=== PATIENT | female | born 1950 | race Caucasian/White ===

== ENCOUNTER 2022-05-01 13:28 | Inpatient (IN) | payer OTHER ==
[~2022-05-01] VITALS: Ht 172.7 cm; Wt 61.7 kg
[2022-05-01 13:35] VITALS: BP_SYST 204
--- NOTE | 2022-05-01 13:45 | NUR ---
PT PLACED IN BED AT THIS TIME FROM [facility] FROM HD FOR TONIC CLONIC SEIZURES FOR 20 SECONDS WHILE 3 HOURS INTO.
--- NOTE | 2022-05-01 14:37 | NUR ---
PT OFF TO CT AT THIS TIME
[2022-05-01 15:19] LABS: BASOPHILS # (AUTO) 0.1 K/uL (0.0-0.2); BASOPHILS % (AUTO) 1.2 % (0.0-2.0); EOSINOPHILS # (AUTO) 0.2 K/uL (0.0-0.4); EOSINOPHILS % (AUTO) 5.1 % (0.0-4.0); HEMATOCRIT 32.7 % (36-48); HEMOGLOBIN 11.2 g/dL (12.0-16.0); LYMPHOCYTES # (AUTO) 0.8 K/uL (1.0-5.5); LYMPHOCYTES % (AUTO) 17.6 % (20.5-51.5); MEAN CORPUSCULAR HEMOGLOBIN 33 pg (27-31); MEAN CORPUSCULAR HGB CONC 34 % (32-36); MEAN CORPUSCULAR VOLUME 96 fL (79.0-98.0); MONOCYTES # (AUTO) 0.3 K/uL (0.0-1.0); MONOCYTES % (AUTO) 5.7 % (1.7-9.3); NEUTROPHILS # (AUTO) 3.1 K/uL (1.8-7.7); NEUTROPHILS % (AUTO) 70.4 % (40.0-70.0); PLATELET COUNT (AUTO) 133 K/uL (130-430); RED CELL DISTRIBUTION WIDTH 14.6 % (9.0-15.0); WHITE BLOOD COUNT (AUTO) 4.4 K/uL (4.8-10.8)
[2022-05-01 15:24] LABS: ANION GAP 9 (5-15); CALCIUM 8.2 mg/dL (8.4-11.0); CHLORIDE 94 mmol/L (98-107); CREATININE 4.91 mg/dL (0.55-1.30); GLUCOSE 116 mg/dL (70-99); POTASSIUM 3.7 mmol/L (3.5-5.1); SODIUM SERUM 135 mmol/L (136-145); UREA NITROGEN, BLOOD 59 mg/dL (8-21)
[2022-05-01 15:37] LABS: ALANINE AMINOTRANSFERASE 59 U/L (12-78); ALBUMIN 3.4 g/dL (3.4-4.8); ASPARTATE AMINOTRANSFERASE 40 U/L (10-37); PHOSPHORUS 2.5 mg/dL (2.7-4.5); TOTAL BILIRUBIN 0.4 mg/dL (0.0-1.0)
[2022-05-01 15:40] LABS: GFR AFRICAN AMERICAN 11 mL/min (>90)
--- NOTE | 2022-05-01 15:45 | NUR ---
SHARA MEREDITH(CLEOPATRA)
--- NOTE | 2022-05-01 15:47 | NUR ---
SPOKE TO DAUGHTER, HAMLET, AT BEDSIDE. REPORTS PATIENT HAD A 20-30 SEC WITNESSED TONIC CLONIC SEIZURE WHILE AT DIALYSIS AFTER 3 HOURS TODAY. PATIENT HAS DIALYSIS ON SUNDAY, SUNDAY, AND SUNDAY AND IS CARED FOR BY DR. REES. PER DAUGHTER, THIS IS THE FIRST TIME PATIENT HAD SEIZURE. DAUGHTER REPORTS PATIENT HAS BEEN HAVING FACIAL AND LEFT SHOULDER TWITCHING. DAUGHTER BROUGHT PATIENT TO [facility] AND REPORTS "THEY FOUND NOTHING WRONG." PATIENT HAS LEFT FA FISTULA . PATIENT IS LETHARGIC. DAUGHTER REPORTS THIS IS HER BASELINE ON DIALYSIS DAYS. BP IS 208/92. DR. KING IS AWARE OF BP AND WILL PLACE ORDERS. DENIES ANY PAIN
--- NOTE | 2022-05-01 16:00 | NUR ---
ER Dr. KING at bedside examining patient.
--- NOTE | 2022-05-01 16:02 | NUR ---
DAUGHTER REPORTS PATIENT IS NO LONGER REPORTING URINATION. NOTIFIED
[2022-05-01] MEDS ORDERED: LABETALOL HCL 20 MG/4 ML CARTRIDGE IVP ONE (16:15)
[2022-05-01] MEDS ORDERED: LIP40 PO (16:17)
[2022-05-01] MEDS ORDERED: LOSA25TA18 PO (16:17)
[2022-05-01] MEDS ORDERED: CARV20CP7 PO (16:17)
[2022-05-01] MEDS ORDERED: FOLI-43 PO (16:17)
[2022-05-01] MEDS ORDERED: PATI8.4P PO (16:17)
[2022-05-01] MEDS ORDERED: SITA50TA3 PO (16:17)
[2022-05-01] MEDS ORDERED: ASPI-1077 PO (16:18)
[2022-05-01] MEDS ORDERED: SEN30 PO (16:18)
--- NOTE | 2022-05-01 16:18 | NUR ---
Medication reconciliation completed with information provided by PATIENT'S DAUGHTER. Any prior medication reconciliation on file was reviewed and corrected.
--- NOTE | 2022-05-01 16:29 | NUR ---
COVID JESUS SWAB SENT TO LAB.
--- NOTE | 2022-05-01 16:30 | NUR ---
DAUGHTER REPORTS PATIENT IS DNR. 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 End of life care decisions discussed with DAUGHTER, HAMLET, by Dr. KING. Opportunity for questions and concerns addressed. Patient's code status is DNR paperwork completed and placed in chart.
[2022-05-01] MEDS ORDERED: GLUCOSE (DEXTROSE) ORAL GEL -Adults PO PRN (17:00)
[2022-05-01] MEDS ORDERED: DEXTROSE 50% JECT 50 ML DISP.SYRIN IVP PRN (17:00)
[2022-05-01] MEDS ORDERED: D5W 1,000 ML IV PRN (17:00)
--- NOTE | 2022-05-01 17:07 | NUR ---
Admit bed requested Patient will be admitted to care of Dr. MCDANIEL. Admitted to TELEMETRY unit. Diagnosis MYOCARDIAL INFARCTION Inpatient (Yes or No) YES Observation (Yes or No) NO Orientation concerns or request close to nursing station (Yes or No) YES, FALL RISK Covid Status NEGATIVE On vent or bipap NO Isolation requirements NO Needs a sitter NO From Home (Yes or if No enter name of facility) Y Requires Dialysis (Yes or No) Y Med Rec Completed (Yes of No) Y
--- NOTE | 2022-05-01 17:22 | NUR ---
PATIENT PASSED SWALLOW EVALUATION. PATIENT AWAKE AND ALERT. DAUGHTER AT BEDSIDE. GIVEN SANDWICH BOX
--- NOTE | 2022-05-01 18:11 | NUR ---
DR. MCDANIEL NOTIFIED OF TROPONIN OF 2110. REQUESTS TO NOTIFY DR. CORTES WELL. EKG ORDERED. NEW ORDERS OF HEPARIN PER PHARMACY TO DOSE AND HYDRALAZINE 50 MG PO NOW.
[2022-05-01] MEDS ORDERED: hydrALAZINE HCL 25 MG TABLET PO ONE (18:15)
--- NOTE | 2022-05-01 18:20 | NUR ---
DR. CORTES CALLED BACK INFORMED OF PATIENT'S STATUS AND CRITICAL RESULTS NO NEW ORDERS. CONTINUE TO MONITOR
[2022-05-01] MEDS ORDERED: *HEPARIN PER PHARMACY XX ONE (18:30)
[2022-05-01] MEDS ORDERED: MUPIROCIN 2% TOPICAL OINTMENT 22 GM NS PRN (18:45)
[2022-05-01] MEDS ORDERED: LORazepam 2 MG/ML VIAL IVP PRN (18:45)
[2022-05-01] MEDS ORDERED: MORPHINE 2 MG/ML INJ. SYRINGE IVP PRN ×2 (18:45)
[2022-05-01] MEDS ORDERED: HEPARIN SODIUM,PORCINE 2000 UNITS/0.4 ML BOLUS IVP PRN (18:45)
[2022-05-01] MEDS ORDERED: POTASSIUM CHLORIDE 20 MEQ TAB.PRT.SR PO PRN (18:45)
[2022-05-01] MEDS ORDERED: ACETAMINOPHEN 325 MG TABLET PO PRN ×2 (18:45→19:00)
[2022-05-01] MEDS ORDERED: MAGNESIUM SULFATE 50 ML IV PRN (18:45)
[2022-05-01] MEDS ORDERED: DOCUSATE SODIUM 100 MG CAPSULE PO PRN (18:45)
[2022-05-01] MEDS ORDERED: ONDANSETRON HCL 4 MG/2 ML VIAL IVP PRN (18:45)
[2022-05-01] MEDS ORDERED: VALSARTAN 80 MG TABLET (DIOVAN) PO SCH (18:45)
[2022-05-01] MEDS ORDERED: ZOLPIDEM TARTRATE 5 MG TABLET PO PRN (18:45)
[2022-05-01] MEDS ORDERED: cloNIDine HCL 0.2 MG TABLET PO PRN (18:45)
[2022-05-01] MEDS ORDERED: HEPARIN SODIUM,PORCINE 3000 UNITS/0.6 ML BOLUS IVP PRN (18:45)
[2022-05-01] MEDS ORDERED: NALOXONE HCL 0.4 MG/ML AMP (NARCAN) IVP PRN ×2 (18:45)
[2022-05-01] MEDS ORDERED: HEPARIN SODIUM,PORCINE 5,000 UNITS/ML VIAL SUBCUT ONE (19:00)
--- NOTE | 2022-05-01 19:49 | NUR ---
ASSUMED CARE OF PT AT THIS TIME. PT IS IN POSITION OF COMFORT. DAUGHTER AT BEDSIDE. 200/70 B/P. PT WAS IN DIALYSIS TODAY AND UNABLE TO COMPLETE DUE TO SEIZURE ACTIITY, NEW ONSET. AWAITING BED ASSIGNMENT. WILL CONTINUE TO MONITOR AND FOLLOW THROUGH JOSELUIS CURRENT ORDERS.
[2022-05-01 20:02] LABS: INR 1.1 (0.8-1.2)
[2022-05-01] MEDS: HEPARIN 25,000 UNITS in 250 ML PREMIX IV PRN (20:14)
--- NOTE | 2022-05-01 21:19 | NUR ---
PT LEFT ER TO [facility]B WITH PRODUCT REPRESENTATIVE PRIOR TO GIVING REPORT. WILL CALL WHEN AVAILABLE.
[2022-05-01 21:38] VITALS: BP_SYST 180
--- NOTE | 2022-05-01 21:50 | NUR ---
ATTEMPTED TO CALL REPORT TO JESUS WHELAN. STATED HE WAS WITH THE PT AND PT HAD BEEN THERE FOR AT LEAST 30 MINUTES AND "WHATS THE POINT". UPDATED MAGNETIC TESTING TECHNICIAN KYLEIGH ON JESUS REFUSING REPORT.
[2022-05-01] MEDS: CARVEDILOL 25 MG TABLET (COREG) PO SCH (22:15)
--- NOTE | 2022-05-01 22:15 | NUR ---
Admission of 71 year old female under the care of Doctor Ok for seizure myocardial infarct type 2 per admission md note. Kofi Penn RN
[2022-05-01] MEDS: LOSARTAN POTASSIUM 50 MG TABLET (COZAAR) PO SCH (22:16)
[2022-05-01 23:56] VITALS: BP_SYST 132
[2022-05-02 04:47] LABS: BASOPHILS # (AUTO) 0.1 K/uL (0.0-0.2); EOSINOPHILS # (AUTO) 0.3 K/uL (0.0-0.4); EOSINOPHILS % (AUTO) 3.7 % (0.0-4.0); HEMATOCRIT 29.4 % (36-48); HEMOGLOBIN 10.4 g/dL (12.0-16.0); LYMPHOCYTES # (AUTO) 1.6 K/uL (1.0-5.5); LYMPHOCYTES % (AUTO) 20.9 % (20.5-51.5); MEAN CORPUSCULAR HEMOGLOBIN 34 pg (27-31); MEAN CORPUSCULAR HGB CONC 35 % (32-36); MEAN CORPUSCULAR VOLUME 97 fL (79.0-98.0); MONOCYTES # (AUTO) 0.7 K/uL (0.0-1.0); MONOCYTES % (AUTO) 8.7 % (1.7-9.3); NEUTROPHILS # (AUTO) 5.1 K/uL (1.8-7.7); NEUTROPHILS % (AUTO) 65.7 % (40.0-70.0); PLATELET COUNT (AUTO) 126 K/uL (130-430); RED BLOOD CELL COUNT(AUTO) 3.04 MIL/uL (4.2-6.2); RED CELL DISTRIBUTION WIDTH 14.3 % (9.0-15.0); WHITE BLOOD COUNT (AUTO) 7.8 K/uL (4.8-10.8)
[2022-05-02 04:54] LABS: CALCIUM 8.2 mg/dL (8.4-11.0); CREATININE 5.72 mg/dL (0.55-1.30); POTASSIUM 4.6 mmol/L (3.5-5.1)
[2022-05-02 05:12] LABS: INR 1.2 (0.8-1.2); PROTHROMBIN TIME 12.1 SECS (9.5-12.5)
--- NOTE | 2022-05-02 05:45 | NUR ---
SPOKE WITH DOCTOR SOPHIA REGARDING MORNING CONSULT TROPONIN GOING TO 1295. JESUS DURAND RN
--- NOTE | 2022-05-02 07:55 | NUR ---
HEPARIN DRIP HELD Heparin drip held per protocol with PTT > 150.
--- NOTE | 2022-05-02 08:10 | NUR ---
INITIAL ROUNDS Received pt AAOx1, no s/s resp distress, no c/o pain or discomfort. Heparin drip held and PTT ordered hourly per protocol. Pt assisted with her breakfast, now feeding her self. Side rails up x3, bed alarm on and room close to nursing station for safety. Call light within reach.
[2022-05-02 08:24] VITALS: BP_SYST 160
--- NOTE | 2022-05-02 08:56 | NUR ---
CONSULTATION PAGED/CALLED Reason for Consultation: []Seizure new onset Person Who was Notified: [] Peggy Consulting Physician: [] Lorraine [employer] Specialty: [] Neurology Ordering Physician: [] Bridger Euceda
[2022-05-02] MEDS: CINACALCET HCL 30 MG TABLET PO SCH (09:49)
[2022-05-02] MEDS: LOSARTAN POTASSIUM 50 MG TABLET (COZAAR) PO SCH ×2 (09:49→22:03)
[2022-05-02] MEDS: CARVEDILOL 25 MG TABLET (COREG) PO SCH ×2 (09:50→22:03)
[2022-05-02] MEDS: ASPIRIN 81 MG TAB.CHEW PO SCH (09:50)
[2022-05-02] MEDS: FOLIC ACID 1 MG TABLET PO SCH (09:50)
[2022-05-02] MEDS: ATORVASTATIN 20 MG TABLET PO SCH (09:51)
--- NOTE | 2022-05-02 10:43 | NUR ---
CONSULTATION PAGED/CALLED Reason for Consultation: CKD Person Who was Notified: RAND AT [employer] Consulting Physician: DR. COREY BALL Knurling Machine Tender Specialty: NEPRHOLOGY Ordering Physician: DR. MCDANIEL
[2022-05-02 12:00] VITALS: BP_SYST 150
--- NOTE | 2022-05-02 12:02 | NUR ---
LATEST PTT/HEPARIN DRIP Heparin Drip resumed per protocol with PTT 42.0. Addendum: 05/02/22 at 1206 by Nona Beltre RN Heparin drip resumed at 600 units per protocol.
[2022-05-02] MEDS: HEPARIN 25,000 UNITS in 250 ML PREMIX IV PRN (12:20)
[2022-05-02 16:00] VITALS: BP_SYST 152
[2022-05-02] MEDS ORDERED: LUBI24CA5 PO (17:22)
[2022-05-02] MEDS ORDERED: PSYL0.4C2 PO (17:26)
--- NOTE | 2022-05-02 19:14 | NUR ---
CLOSING NOTE Pt resting quietly in bed with no s/s resp distress, no c/o pain or discomfort, Heparin drip infusing well at ordered rate to RFA with no s/s infiltration. Latest PTT drawn earlier, still pending-endorsed to next shift nurse. Dr. Du here and informed that the pt's daughter Richardson wants him to call her-MD given phone number. Aspiration, skin and safety precautions remain in place. Call light within reach.
[2022-05-02 20:54] VITALS: BP_SYST 168
[2022-05-03 01:30] VITALS: BP_SYST 160
[2022-05-03 06:38] LABS: BASOPHILS # (AUTO) 0.1 K/uL (0.0-0.2); BASOPHILS % (AUTO) 0.8 % (0.0-2.0); EOSINOPHILS # (AUTO) 0.3 K/uL (0.0-0.4); EOSINOPHILS % (AUTO) 5.1 % (0.0-4.0); HEMATOCRIT 28.6 % (36-48); HEMOGLOBIN 9.9 g/dL (12.0-16.0); LYMPHOCYTES % (AUTO) 30.7 % (20.5-51.5); MEAN CORPUSCULAR HEMOGLOBIN 34 pg (27-31); MEAN CORPUSCULAR HGB CONC 34 % (32-36); MEAN CORPUSCULAR VOLUME 97 fL (79.0-98.0); MONOCYTES # (AUTO) 0.6 K/uL (0.0-1.0); MONOCYTES % (AUTO) 9.4 % (1.7-9.3); NEUTROPHILS # (AUTO) 3.6 K/uL (1.8-7.7); PLATELET COUNT (AUTO) 124 K/uL (130-430); RED BLOOD CELL COUNT(AUTO) 2.94 MIL/uL (4.2-6.2); RED CELL DISTRIBUTION WIDTH 14.3 % (9.0-15.0); WHITE BLOOD COUNT (AUTO) 6.6 K/uL (4.8-10.8)
[2022-05-03 07:32] LABS: CALCIUM 7.3 mg/dL (8.4-11.0); POTASSIUM 4.9 mmol/L (3.5-5.1)
[2022-05-03 07:53] LABS: CREATININE 7.56 mg/dL (0.55-1.30)
[2022-05-03 08:00] VITALS: BP_SYST 162
--- NOTE | 2022-05-03 08:00 | NUR ---
Initial notes awake, confused. able to feed self. denies any pain or discomfort. on heparin drip at 600 units/hr. old bleeding noted on left arm shunt dressing, no active bleeding noted at this time. bed alarm on, will continue to monitor.
[2022-05-03] MEDS: LOSARTAN POTASSIUM 50 MG TABLET (COZAAR) PO SCH ×2 (08:47→21:30)
[2022-05-03] MEDS: CARVEDILOL 25 MG TABLET (COREG) PO SCH ×2 (08:47→21:30)
[2022-05-03] MEDS: CINACALCET HCL 30 MG TABLET PO SCH (08:49)
[2022-05-03] MEDS: FOLIC ACID 1 MG TABLET PO SCH (08:49)
[2022-05-03] MEDS: ATORVASTATIN 20 MG TABLET PO SCH (08:49)
[2022-05-03] MEDS: ASPIRIN 81 MG TAB.CHEW PO SCH (08:49)
--- NOTE | 2022-05-03 09:27 | NUR ---
ROTARY FURNACE TENDER DR. MOTA ASKED ME TO CALL HD NURSE [facility] TO DIALYZE PT STAT. DR MOTA STATED THAT THERE IS A NEEDLE IN THE SHUNT.
--- NOTE | 2022-05-03 09:30 | NUR ---
Notes- Dialysis nurse here and made aware of stat dialysis and the needle still on the shunt
--- NOTE | 2022-05-03 10:00 | NUR ---
notes- EEG done this moring
--- NOTE | 2022-05-03 10:30 | NUR ---
Notes= Dressing change done by dialysis nurse. per HD nurse, its bleeding when he change. he put pressure dressing at this time. and he will call
[2022-05-03] MEDS: HEPARIN 25,000 UNITS in 250 ML PREMIX IV PRN (11:24)
--- NOTE | 2022-05-03 11:30 | NUR ---
Notes- No bleeding noted on the dressing on the fistula at this time. dialysis nurse does not want to remove dressing.
[2022-05-03 12:25] VITALS: BP_SYST 128
--- NOTE | 2022-05-03 12:30 | NUR ---
Notes Informed dialysis nurse to take out dressing and assess again for bleeding per Dr. Cerda, HD nrse is doing dialysis at this time and will do it after he is done.
--- NOTE | 2022-05-03 13:30 | NUR ---
Notes Dialysis nurse to change dressing and will call Dr. Cerda.
[2022-05-03 14:03] LABS: INR 1.1 (0.8-1.2); PROTHROMBIN TIME 11.3 SECS (9.5-12.5)
--- NOTE | 2022-05-03 14:55 | NUR ---
Notes Dialysis nurse at bedside to do dialysis
[2022-05-03 16:24] VITALS: BP_SYST 126
[2022-05-03] MEDS ORDERED: EPOETIN ALFA-EPBX 4,000 UNITS/ML VIAL SUBCUT SCH (17:00)
--- NOTE | 2022-05-03 18:28 | NUR ---
CLOSING NOTES EATING DINNER, DAUGHTER AT BEDSIDE. AV SHUNT DRESSING IS DRY, NO BLEEDING NOTED. NO DISTRESS. WILL ENDORSE
[2022-05-03] MEDS ORDERED: COMMUNICATION ORDER XX ONE (19:45)
[2022-05-03 19:55] VITALS: BP_SYST 164
[2022-05-04 00:10] VITALS: BP_SYST 168
[2022-05-04 06:35] LABS: CREATININE 4.75 mg/dL (0.55-1.30); POTASSIUM 3.9 mmol/L (3.5-5.1)
[2022-05-04 06:39] LABS: BASOPHILS % (AUTO) 0.8 % (0.0-2.0); EOSINOPHILS # (AUTO) 0.3 K/uL (0.0-0.4); EOSINOPHILS % (AUTO) 5.3 % (0.0-4.0); HEMOGLOBIN 10.5 g/dL (12.0-16.0); LYMPHOCYTES # (AUTO) 1.5 K/uL (1.0-5.5); LYMPHOCYTES % (AUTO) 30.4 % (20.5-51.5); MEAN CORPUSCULAR HEMOGLOBIN 34 pg (27-31); MEAN CORPUSCULAR HGB CONC 35 % (32-36); MEAN CORPUSCULAR VOLUME 97 fL (79.0-98.0); MONOCYTES # (AUTO) 0.5 K/uL (0.0-1.0); MONOCYTES % (AUTO) 10.9 % (1.7-9.3); NEUTROPHILS # (AUTO) 2.5 K/uL (1.8-7.7); NEUTROPHILS % (AUTO) 52.6 % (40.0-70.0); PLATELET COUNT (AUTO) 126 K/uL (130-430); RED BLOOD CELL COUNT(AUTO) 3.09 MIL/uL (4.2-6.2); RED CELL DISTRIBUTION WIDTH 14.5 % (9.0-15.0); WHITE BLOOD COUNT (AUTO) 4.8 K/uL (4.8-10.8)
--- NOTE | 2022-05-04 07:45 | NUR ---
OPENING NOTES: Received patient in bed, awake, oriented x1, forgetful, verbally responsive. IV patent, no c/o pain, no acute distress or discomfort noted, safety precaution observed. Will continue to monitor.
[2022-05-04 07:59] VITALS: BP_SYST 161
[2022-05-04] MEDS: CINACALCET HCL 30 MG TABLET PO SCH (08:17)
[2022-05-04] MEDS: ATORVASTATIN 20 MG TABLET PO SCH (08:20)
[2022-05-04] MEDS: ASPIRIN 81 MG TAB.CHEW PO SCH (08:21)
[2022-05-04] MEDS: LOSARTAN POTASSIUM 50 MG TABLET (COZAAR) PO SCH (08:22)
[2022-05-04] MEDS: FOLIC ACID 1 MG TABLET PO SCH (08:22)
[2022-05-04] MEDS: CARVEDILOL 25 MG TABLET (COREG) PO SCH (08:22)
--- NOTE | 2022-05-04 11:59 | NUR ---
Notes: Incontinence care provided, turned and repositioned for comfort, safety precaution observed, bed alarm on, side rails up for safety, call light within reach. Will continue to monitor.
[2022-05-04 12:51] VITALS: BP_SYST 137
[2022-05-04 13:28] VITALS: BP_SYST 137
--- NOTE | 2022-05-04 15:10 | NUR ---
D/C Patient Patient given medication reconciliation form and D/C instructions. Exit Care provided. Patient and daughter verbalized understanding. MD discussed with patient the results and treatment provided. Unsteady gait for discharge to home.Patient has wheelchair at home and Physical Therapist. Patient in stable condition, ID band removed. IV catheter removed, intact and dressing applied, no active bleeding.All belongings sent with patient.
== END 2022-05-04 15:10 | disposition home or self-care (01) | DRG 100 ==
LOC: SED 13:28 → STU 16:53
PROVIDERS: ADMIT General Practice; ATTEND General Practice
PROC: 4A10X4Z Monitoring of Central Nervous Electrical Activity, External Approach (ICD-10-PCS; principal; 2022-05-03)
PROC: 5A1D70Z Performance of Urinary Filtration, Intermittent, Less than 6 Hours Per Day (ICD-10-PCS; 2022-05-03)
DX: G40.909 Epilepsy, unspecified, not intractable, without status epilepticus (principal); N18.6 End stage renal disease; I21.A1 Myocardial infarction type 2; N17.0 Acute kidney failure with tubular necrosis; I13.2 Hypertensive heart and chronic kidney disease with heart failure and with stage 5 chronic kidney disease, or end stage renal disease; G90.8 Other disorders of autonomic nervous system; Z66 Do not resuscitate; E78.5 Hyperlipidemia, unspecified; G30.9 Alzheimer's disease, unspecified; F02.80 Dementia in other diseases classified elsewhere, unspecified severity, without behavioral disturbance, psychotic disturbance, mood disturbance, and anxiety; D63.8 Anemia in other chronic diseases classified elsewhere; Z20.822 Contact with and (suspected) exposure to COVID-19; I50.9 Heart failure, unspecified; E11.22 Type 2 diabetes mellitus with diabetic chronic kidney disease; Z99.2 Dependence on renal dialysis
CPT/HCPCS: 36415; 70450-TC; 71045; 76376; 80048; 80053; 82962; 83036; 83605; 83735; 83880; 84100; 84484; 85025; 85610-TC; 85730-TC; 87040; 87081; 90935; 93005; 93306; 95816; 96372; 96374; 97116-GP; 97530-GP; 99285; G0378; J1644; Q5106

== ENCOUNTER 2022-08-09 11:16 | Emergency (ER) | payer OTHER ==
[~2022-08-09] VITALS: Ht 157.5 cm; Wt 66.2 kg
[~2022-08-09 11:16] MED LIST: ASPI-1077 PO; CARV20CP7 PO; FOLI-43 PO; LIP40 PO; LOSA25TA18 PO; LUBI24CA5 PO; PATI8.4P PO; PSYL0.4C2 PO; SEN30 PO; SITA50TA3 PO
--- NOTE | 2022-08-09 11:21 | NUR ---
Placed in room 2 . Placed on monitor car operator, blood pressure machine and pulse oximeter. To gown for exam. Side rails up. Report given to MALLIKA WHELAN
--- NOTE | 2022-08-09 11:29 | NUR ---
LABS BEING DRAWN AT BEDSIDE.
--- NOTE | 2022-08-09 11:32 | NUR ---
ACCORDING TO MEDICS, PT IS RESIDENT OF [facility] AND WAS PULLING ON DOUBLE LUMEN DIAYSIS SHUNT TO RIGHT SIDED NECK. SMALL AMT OF BLEEDING NOTED AT [facility], BLEEDING CONTROLLED UPON ARRIVAL TO [facility].
[2022-08-09 11:34] VITALS: BP_SYST 179
--- NOTE | 2022-08-09 11:55 | NUR ---
XRAYS BEING DONE AT BEDSIDE.
[2022-08-09 12:00] LABS: BASOPHILS % (AUTO) 0.7 % (0.0-2.0); EOSINOPHILS # (AUTO) 0.2 K/uL (0.0-0.4); HEMATOCRIT 22.1 % (36-48); LYMPHOCYTES # (AUTO) 1.2 K/uL (1.0-5.5); MEAN CORPUSCULAR VOLUME 99 fL (79.0-98.0); MONOCYTES # (AUTO) 0.5 K/uL (0.0-1.0); MONOCYTES % (AUTO) 10.9 % (1.7-9.3); NEUTROPHILS # (AUTO) 2.5 K/uL (1.8-7.7); NEUTROPHILS % (AUTO) 57.4 % (40.0-70.0); PLATELET COUNT (AUTO) 269 K/uL (130-430); RED BLOOD CELL COUNT(AUTO) 2.24 MIL/uL (4.2-6.2); WHITE BLOOD COUNT (AUTO) 4.3 K/uL (4.8-10.8)
--- NOTE | 2022-08-09 12:01 | NUR ---
ACCORDING TO DAUGHTER HAMLET, PT TESTED + FOR COVID ON 08/03, TESTED AT [facility] PRIOR TO HAVING A PROCEDURE. PROCEDURE FOR REVISON OF LEFT ARM SHUNT DUE TO SWELLING, NO PROCEDURE DONE DUE TO COVID TEST +. THEY PLACED A SHUNT TO RIGHT NECK UNTIL PROCEDURE CAN BE DONE.
--- NOTE | 2022-08-09 12:25 | NUR ---
REPORT GIVEN TO EDDIE TO ASSUME CARE.
[2022-08-09 12:28] LABS: CALCIUM 9.7 mg/dL (8.4-11.0); CREATININE 5.52 mg/dL (0.55-1.30); POTASSIUM 4.1 mmol/L (3.5-5.1)
[2022-08-09 12:33] LABS: ALBUMIN 2.5 g/dL (3.4-4.8); TOTAL BILIRUBIN 0.4 mg/dL (0.0-1.0)
--- NOTE | 2022-08-09 13:11 | NUR ---
WILL ASSUME CARE BACK. AWAITING DISCHARGE.
--- NOTE | 2022-08-09 14:59 | NUR ---
SPOKE WITH PTS DAUGHTER AND TOLD OF PLAN TO RETURN TO [facility] WITH A PICKUP OF [phone]
--- NOTE | 2022-08-09 15:35 | NUR ---
SPOKE WITH ALFREDO AT [facility] AND GAVE REPORT. [facility] HERE FOR PICKUP
--- NOTE | 2022-08-09 15:40 | NUR ---
Patient given written and verbal discharge instructions and verbalizes understanding. ER MD discussed with patient the results and treatment provided. Patient in stable condition. ID arm band removed. Rx of NONE given. Patient educated on pain management and to follow up with PMD. Pain Scale 0/10. Opportunity for questions provided and answered. Medication side effect fact sheet provided.
== END 2022-08-09 15:35 | disposition home or self-care (01) ==
LOC: SED 11:16
DX: T82.49XA Other complication of vascular dialysis catheter, initial encounter (principal); I10 Essential (primary) hypertension; E78.5 Hyperlipidemia, unspecified; Z79.899 Other long term (current) drug therapy
CPT/HCPCS: 36415; 71045; 80053; 85025; 99284